=== PATIENT | female | born 1955 | race Caucasian/White ===

== ENCOUNTER 2018-05-10 19:31 | Emergency (ER) | payer BC, OTHER ==
--- NOTE | 2018-05-10 19:53 | RAD REPORT ---
EXAM DESCRIPTION: CT - Ct Stroke Brain Wo Cont - 05/10/2018 7:49 pm CLINICAL HISTORY: Aphasia;Confused CVA symptomology COMPARISON: No comparisons TECHNIQUE: All CT scans are performed using dose optimization technique as appropriate and may inclu de automated exposure control or mA/KV adjustment according to patient size. FINDINGS: No intracranial hemorrhage, hydrocephalus or extra-axial fluid collection.Mild generalized brain atrophy is present with mild periventricular and deep white matter chronic microvascular ische sulma changes.No areas of brain edema or evidence of midline shift. The paranasal sinuses and mastoids are clear. The calvarium is intact. Left vertebral artery is calci fied. IMPRESSION: No acute intracranial abnormality.
[2018-05-10 19:59] LABS: Absolute Lymphocytes (CBC) 2.6 K/uL (0.7-4.9); Absolute Monocytes 0.8 K/uL (0.1-1.3); Absolute Neutrophil 4.1 K/uL (1.8-8.0); Basophils % 1.3 % (0-1.3); Eosinophils % 3.8 % (0-4.4); MPV 8.7 fL (7.6-11.3); Monocytes % 10.1 % (3.3-12.3); RBC Red Blood Cell Count 4.12 M/uL (3.86-4.86)
[2018-05-10 20:05] LABS: Protime INR 0.9
[2018-05-10 20:14] LABS: Potassium 4.1 mmol/L (3.5-5.1)
--- NOTE | 2018-05-10 20:22 | RAD REPORT ---
EXAM DESCRIPTION: RAD - Chest Single View - 05/10/2018 8:16 pm CLINICAL HISTORY: stroke Chest pain. COMPARISON: No comparisons FINDINGS: Portable technique limits examination quality. The lungs are grossly clear. The heart is normal in size. No displaced fractures.Sternotomy wires. IMPRESSION: No acute intrathoracic process suspected.
[2018-05-10 21:04] LABS: Urine Blood NEGATIVE (NEG); Urine Glucose NEGATIVE (NEG); Urine Protein TRACE (NEG); Urine Specific Gravity 1.015 (1.005-1.030)
--- NOTE | 2018-05-10 21:43 | ER ---
Nurse's Notes [facility] Name: Jeni Navarro Age: 63 yrs Sex: Female : 1955 Arrival Date: 05/10/2018 Time: 19:34 Bed 3 Private MD: Diagnosis: Transient ischemic attack;Dysarthria following unspecified cerebrovascular disease Presentation: 05/10 19:28 Presenting complaint: EMS states: that pt is having on and off slurred speech and fc expressive aphagia. Tingling to right arm when this started but it has gone away. Pt denies any pain or discomfort. Hx of CVA. Transition of care: patient was not received from another setting of care. Onset of symptoms was May 10, 2018 at 18:30. Risk Assessment: Do you want to hurt yourself or someone else? Patient reports no desire to harm self or others. Initial Sepsis Screen: Does the patient meet any 2 criteria? No. Patient's initial sepsis screen is negative. Does the patient have a suspected source of infection? No. Patient's initial sepsis screen is negative. Care prior to arrival: IV initiated. 20 GA, in the left forearm, Glucose check: 111. 19:28 Method Of Arrival: EMS: [facility] 19:28 Acuity: KARINA 2 fc 19:28 An acute neurological deficit is present. The patients blood glucose was checked before aa1 arriving to the hospital and was found to be normal. Triage Assessment: 19:28 The onset of the patients symptoms was May 10, 2018 at 18:30. aa1 Stroke Activation: Symptom onset < 3 hours Physician: Stroke Attending; Name: ; Notified At: 19:28; Arrived At: Physician: Chief Stroke Resident; Name: ; Notified At: 19:28; Arrived At: Physician: Stroke Resident; Name: ; Notified At: 19:28; Arrived At: Physician: ED Attending; Name: Britt; Notified At: 19:28; Arrived At: 19:28 Physician: ED Resident; Name: ; Notified At: 19:28; Arrived At: Historical: - Allergies: 21:06 No Known Allergies; fc - Home Meds: 21:06 Metformin Oral [Active]; Metoprolol Tartrate Oral [Active]; fc - PMHx: 21:06 CVA; Diabetes - NIDDM; Hypertension; fc - PSHx: 21:06 CABG; Heart stents; fc - Immunization history:: Last tetanus immunization: up to date Flu vaccine is not up to date. - Social history:: Smoking status: Patient/guardian denies using tobacco, Patient/guardian denies using alcohol. - Ebola Screening: : Patient negative for fever greater than or equal to 101.5 degrees Fahrenheit, and additional compatible Ebola Virus Disease symptoms Patient denies exposure to infectious person Patient denies travel to an Ebola-affected area in the 21 days before illness onset. Screenin:28 Abuse screen: Denies threats or abuse. Nutritional screening: No deficits noted. Tuberculosis screening: No symptoms or risk factors identified. Fall Risk None identified. 19:41 The patient has not been NPO before screening. The patient is alert, able to follow commands. The patient does not exhibit slurred or garbled speech The patient is exhibiting difficulty speaking. The patient does not exhibit difficulty understanding words. The patient is able to swallow own secretions with no drooling or need for suction. Patient tolerated one teaspoon of water. No drooling, immediate coughing, gurgling, or clearing of the throat was noted. The patient tolerated 90mL of water. No drooling, immediate coughing, gurgling, or clearing of the throat was noted. The patient passed the bedside swallow screening. Oral medications may be given as ordered. Contact Physician for further diet orders. Provider notified of bedside swallow screening results: Zacarias De La Torre MD. Assessment: 19:38 General: Appears in no apparent distress. comfortable, Behavior is calm, cooperative, aa1 appropriate for age. Pain: Denies pain. Neuro: Level of Consciousness is awake, alert, obeys commands, Oriented to person, place, time, situation, Audit Spec are equal bilaterally Moves all extremities. Speech is normal, Facial symmetry appears normal, Pupils are PERRLA, Intact When pt asked to identify illustrations on stroke sheet she is unable to identify all of the objects shown and has a difficult time explaining the scene depicted . Denies blurred vision dizziness, difficulty swallowing, paresthesias numbness. Cardiovascular: Heart tones S1 S2 present Rhythm is regular. Respiratory: Airway is patent Respiratory effort is even, unlabored, Respiratory pattern is regular, symmetrical, Breath sounds are clear bilaterally. GI: No signs and/or symptoms were reported involving the gastrointestinal system. : No signs and/or symptoms were reported regarding the genitourinary system. EENT: No signs and/or symptoms were reported regarding the EENT system. Derm: Skin is intact, is healthy with good turgor, Skin is pink, warm \T\ dry. Musculoskeletal: Circulation, motion, and sensation intact. Capillary refill < 3 seconds, Range of motion: intact in all extremities. 19:41 Patient has been NPO before screening. The patient is alert, and able to follow aa1 commands. The patient does not exhibit slurred or garbled speech. The patient is not exhibiting difficulty speaking. The patient does not exhibit difficulty understanding words. The patient is able to swallow own secretions with no drooling or need for suction. Patient tolerated one teaspoon of water. No drooling, immediate coughing, gurgling, or clearing of the throat was noted. The patient tolerated 90mL of water. No drooling, immediate coughing, gurgling, or clearing of the throat was noted. The patient passed the bedside swallow screening. Oral medications may be given as ordered. Contact Physician for further diet orders. Provider notified of bedside swallow screening results: Zacarias De La Torre MD. 19:55 T-PA (Activase) Screening: Contraindications: Rapidly improving condition or minor aa1 deficit: Yes. 20:30 Reassessment: Patient appears in no apparent distress at this time. Patient and/or aa1 family updated on plan of care and expected duration. Pain level reassessed. Patient is alert, oriented x 3, equal unlabored respirations, skin warm/dry/pink. Awaiting provider disposition. 21:30 Reassessment: Patient appears in no apparent distress at this time. Patient and/or aa1 family updated on plan of care and expected duration. Pain level reassessed. Patient is alert, oriented x 3, equal unlabored respirations, skin warm/dry/pink. Pt visiting with family. Requesting water. Will be transferred to [facility] for neurology. 22:01 Reassessment: Patient appears in no apparent distress at this time. Patient and/or aa1 family updated on plan of care and expected duration. Pain level reassessed. Patient is alert, oriented x 3, equal unlabored respirations, skin warm/dry/pink. Report given to Radha Moreland RN at [facility]. 23:15 Reassessment: Patient appears in no apparent distress at this time. Patient and/or aa1 family updated on plan of care and expected duration. Pain level reassessed. Patient is alert, oriented x 3, equal unlabored respirations, skin warm/dry/pink. Pt still awaiting transfer to [facility]. [place] and EMS both unavailable for transport; [facility] contacted and report they can have a unit here within the hour. 05/11 00:24 Reassessment: Patient appears in no apparent distress at this time. Patient is alert, aa1 oriented x 3, equal unlabored respirations, skin warm/dry/pink. [facility] present for transport to [facility]. Vital Signs: 05/10 19:28 BP 162 / 77; Pulse 71; Resp 18; Temp 97.9(O); Pulse Ox 100% on R/A; Weight 79.83 kg fc (R); Height 5 ft. 0 in. (152.40 cm) (R); Pain 0/10; 20:30 BP 137 / 67; Pulse 61; Resp 22; Pulse Ox 100% on R/A; Pain 0/10; aa1 21:31 BP 153 / 68; Pulse 60; Resp 23; Pulse Ox 99% on R/A; ca1 22:26 BP 147 / 76; Pulse 62; Resp 24; Temp 98.0; Pulse Ox 99% on R/A; Pain 0/10; aa1 23:30 BP 128 / 46; Pulse 68; Resp 20; Pulse Ox 99% on R/A; Pain 0/10; aa1 05/11 00:23 BP 128 / 52; Pulse 61; Resp 20; Pulse Ox 100% on R/A; Pain 0/10; aa1 05/10 19:28 Body Mass Index 34.37 (79.83 kg, 152.40 cm) fc Antwan Coma Score: 05/10 19:28 Eye Response: spontaneous(4). Verbal Response: oriented(5). Motor Response: obeys aa1 commands(6). Total: 15. 23:30 Eye Response: spontaneous(4). Verbal Response: oriented(5). Motor Response: obeys aa1 commands(6). Total: 15. 05/11 00:23 Eye Response: spontaneous(4). Verbal Response: oriented(5). Motor Response: obeys aa1 commands(6). Total: 15. NIH Stroke Scale Scores: 05/10 19:28 NIHSS Score: 2 fc 19:38 NIHSS Score: 2 aa1 ED Course: 19:28 Arm band placed on Patient placed in an exam room, on a stretcher. fc 19:28 Patient has correct armband on for positive identification. Bed in low position. Call fc light in reach. Side rails up X2. gambling monitor on. Pulse ox on. NIBP on. 19:28 No provider procedures requiring assistance completed. Maintain EMS IV. Dressing fc intact. Good blood return noted. Site clean \T\ dry. Gauge \T\ site: 20 gauge to left forearm. 19:34 Patient arrived in ED. es 19:38 Warm blanket given. aa1 19:39 EKG done, by ED staff, reviewed by Zacarias De La Torre MD. aa1 19:42 Zacarias De La Torre MD is Attending Physician. tw4 19:47 Triage completed. fc 19:50 CT Stroke Brain w/o Contrast In Process Unspecified. EDMS 19:51 Diana Walter, RN is Primary Nurse. ak1 19:51 Initial lab(s) drawn, by laborer gold leaf, sent to lab. aa1 20:13 Stroke CXR 1 View In Process Unspecified. EDMS 21:58 Diet: Patient given snack. Patient given water. Tolerated well. aa1 05/11 00:30 Patient transferred, IV remains in place. aa1 Administered Medications: No medications were administered Point of Care Testing: Blood Glucose: 05/10 19:30 Blood Glucose: 135 mg/dL; fc Ranges: Outcome: 21:42 ER care complete, transfer ordered by . tw4 05/11 00:29 Transferred by ground EMS to [facility], Transfer form aa1 completed. X-rays sent w/ patient. Condition: stable Discharge instructions given to patient, family, significant other, Instructed on the need for admit, Demonstrated understanding of instructions. 00:33 Patient left the ED. aa1 NIH Stroke Scale - NIH Stroke Score Date: 05/10/2018 Time: 19:28 Total Score = 2 1a. Level of Consciousness (LOC) - 0(Alert) 1b. Level of Consciousness (LOC) (Year \T\ Age) - 0(Both) 1c. LOC Commands (Open \T\ Closes Eyes/Clearing Inspector) - 0(Both) 2. Best Gaze (Lateral Gaze Paresis) - 0(Normal) 3. Visual Field Loss - 0(No visual loss) 4. Facial Palsy - 0(Normal) 5a. Left Arm: Motor (10-second hold) - 0(No drift) 5b. Right Arm: Motor (10-second hold) - 0(No drift) 6a. Left Leg: Motor (5-second hold - always test supine) - 0(No drift) 6b. Right Leg: Motor (5-second hold - always test supine) - 0(No drift) 7. Limb Ataxia (finger/nose \T\ heel/lui - test with eyes open) - 0(Absent) 8. Sensory Loss (pinprick arms/legs/face) - 0(Normal) 9. Best Language: Aphasia (description/naming/reading) - 1(Mild to moderate aphasia) 10. Dysarthria (speech clarity - read or repeat words) - 1(Mild to Moderate) 11. Extinction and Inattention (visual/tactile/auditory/spatial/personal) - 0(No abnormality) Initials: NIH Stroke Scale - NIH Stroke Score Date: 05/10/2018 Time: 19:38 Total Score = 2 1a. Level of Consciousness (LOC) - 0(Alert) 1b. Level of Consciousness (LOC) (Year \T\ Age) - 0(Both) 1c. LOC Commands (Open \T\ Closes Eyes/Clearing Inspector) - 0(Both) 2. Best Gaze (Lateral Gaze Paresis) - 0(Normal) 3. Visual Field Loss - 0(No visual loss) 4. Facial Palsy - 0(Normal) 5a. Left Arm: Motor (10-second hold) - 0(No drift) 5b. Right Arm: Motor (10-second hold) - 0(No drift) 6a. Left Leg: Motor (5-second hold - always test supine) - 0(No drift) 6b. Right Leg: Motor (5-second hold - always test supine) - 0(No drift) 7. Limb Ataxia (finger/nose \T\ heel/lui - test with eyes open) - 0(Absent) 8. Sensory Loss (pinprick arms/legs/face) - 0(Normal) 9. Best Language: Aphasia (description/naming/reading) - 1(Mild to moderate aphasia) 10. Dysarthria (speech clarity - read or repeat words) - 1(Mild to Moderate) 11. Extinction and Inattention (visual/tactile/auditory/spatial/personal) - 0(No abnormality) Initials: aa1 Signatures: Dispatcher [employer] Yani Coe RN RN aa1 Lori aBe Felicia, RN RN fc Diana Walter RN RN ak1 Zacarias De La Torre MD MD tw4 Bere Leon RN RN ca1
--- NOTE | 2018-05-10 21:43 | EDPHYS ---
Physician Documentation [facility] Name: Jeni Navarro Age: 63 yrs Sex: Female : 1955 Arrival Date: 05/10/2018 Time: 19:34 Bed 3 Private MD: ED Physician Zacarias De La Torre HPI: 05/10 20:32 This 63 yrs old Female presents to ER via EMS with complaints of speech tw4 difficulty. 20:32 The patient's problem is reported as dysphasia, slurred speech, expressive aphasia. tw4 Onset: The symptoms/episode began/occurred just prior to arrival, today. Duration: This was a single incident. Context: the episode(s) was witnessed, by a bystander. The symptoms are alleviated by nothing. The symptoms are aggravated by nothing. Associated signs and symptoms: The patient has no apparent associated signs or symptoms. Severity of symptoms: At their worst the symptoms were mild in the emergency department the symptoms are unchanged. The patient has not experienced similar symptoms in the past. Historical: - Allergies: 21:06 No Known Allergies; fc - Home Meds: 21:06 Metformin Oral [Active]; Metoprolol Tartrate Oral [Active]; fc - PMHx: 21:06 CVA; Diabetes - NIDDM; Hypertension; fc - PSHx: 21:06 CABG; Heart stents; fc - Immunization history:: Last tetanus immunization: up to date Flu vaccine is not up to date. - Social history:: Smoking status: Patient/guardian denies using tobacco, Patient/guardian denies using alcohol. - Ebola Screening: : Patient negative for fever greater than or equal to 101.5 degrees Fahrenheit, and additional compatible Ebola Virus Disease symptoms Patient denies exposure to infectious person Patient denies travel to an Ebola-affected area in the 21 days before illness onset. ROS: 20:32 Constitutional: Negative for fever, chills, and weight loss, Eyes: Negative for injury, tw4 pain, redness, and discharge, Cardiovascular: Negative for chest pain, palpitations, and edema, Respiratory: Negative for shortness of breath, cough, wheezing, and pleuritic chest pain, Abdomen/GI: Negative for abdominal pain, nausea, vomiting, diarrhea, and constipation, Back: Negative for injury and pain, MS/Extremity: Negative for injury and deformity. 20:32 Neuro: Positive for speech changes, Negative for altered mental status, dizziness, gait disturbance, headache, hearing loss, syncope, near syncope, tingling, tinnitus, tremor, visual changes, weakness. Exam: 20:32 Constitutional: This is a well developed, well nourished patient who is awake, alert, tw4 and in no acute distress. Head/Face: Normocephalic, atraumatic. Chest/axilla: Normal chest wall appearance and motion. Nontender with no deformity. No lesions are appreciated. Cardiovascular: Regular rate and rhythm with a normal S1 and S2. No gallops, murmurs, or rubs. Normal PMI, no JVD. No pulse deficits. Respiratory: Lungs have equal breath sounds bilaterally, clear to auscultation and percussion. No rales, rhonchi or wheezes noted. No increased work of breathing, no retractions or nasal flaring. Abdomen/GI: Soft, non-tender, with normal bowel sounds. No distension or tympany. No guarding or rebound. No evidence of tenderness throughout. Back: No spinal tenderness. No costovertebral tenderness. Full range of motion. Skin: Warm, dry with normal turgor. Normal color with no rashes, no lesions, and no evidence of cellulitis. MS/ Extremity: Pulses equal, no cyanosis. Neurovascular intact. Full, normal range of motion. 20:32 Neuro: Orientation: is normal, Mentation: is normal. 21:43 Radiologist reports: non acute findings on CT head tw4 05/11 03:04 ECG was reviewed by the Attending Physician. tw4 Vital Signs: 05/10 19:28 BP 162 / 77; Pulse 71; Resp 18; Temp 97.9(O); Pulse Ox 100% on R/A; Weight 79.83 kg fc (R); Height 5 ft. 0 in. (152.40 cm) (R); Pain 0/10; 20:30 BP 137 / 67; Pulse 61; Resp 22; Pulse Ox 100% on R/A; Pain 0/10; aa1 21:31 BP 153 / 68; Pulse 60; Resp 23; Pulse Ox 99% on R/A; ca1 22:26 BP 147 / 76; Pulse 62; Resp 24; Temp 98.0; Pulse Ox 99% on R/A; Pain 0/10; aa1 23:30 BP 128 / 46; Pulse 68; Resp 20; Pulse Ox 99% on R/A; Pain 0/10; aa1 05/11 00:23 BP 128 / 52; Pulse 61; Resp 20; Pulse Ox 100% on R/A; Pain 0/10; aa1 05/10 19:28 Body Mass Index 34.37 (79.83 kg, 152.40 cm) NIH Stroke Scale Scores: 05/10 19:28 NIHSS Score: 2 19:38 NIHSS Score: 2 aa1 [place] Coma Score: 19:28 Eye Response: spontaneous(4). Verbal Response: oriented(5). Motor Response: obeys aa1 commands(6). Total: 15. 23:30 Eye Response: spontaneous(4). Verbal Response: oriented(5). Motor Response: obeys aa1 commands(6). Total: 15. 05/11 00:23 Eye Response: spontaneous(4). Verbal Response: oriented(5). Motor Response: obeys aa1 commands(6). Total: 15. MDM: 05/10 19:42 Patient medically screened. tw4 21:43 Differential diagnosis: CVA, TIA. Data reviewed: vital signs, nurses notes. Data tw4 interpreted: Pulse oximetry: Interpretation: normal. Test interpretation: by ED physician or midlevel provider: plain radiologic studies. Counseling: I had a detailed discussion with the patient and/or guardian regarding: the historical points, exam findings, and any diagnostic results supporting the discharge/admit diagnosis, lab results, radiology results. 05/10 19:39 Order name: Basic Metabolic Panel; Complete Time: 21:37 05/10 19:39 Order name: CBC with Diff 05/10 19:39 Order name: Protime (+inr) 05/10 19:39 Order name: Ptt, Activated 05/10 19:39 Order name: CT Stroke Brain w/o Contrast; Complete Time: 20:55 05/10 20:16 Order name: Urine Dipstick--Ancillary (enter results) ag4 05/10 19:39 Order name: Stroke CXR 1 View 05/10 19:39 Order name: EKG; Complete Time: 19:40 05/10 19:39 Order name: Accucheck; Complete Time: 19:52 05/10 19:39 Order name: Cardiac monitoring; Complete Time: 19:52 05/10 19:39 Order name: EKG - Nurse/Tech; Complete Time: 19:52 05/10 19:39 Order name: IV Saline Lock; Complete Time: :52 05/10 19:39 Order name: Labs collected and sent; Complete Time: 19:52 05/10 19:39 Order name: NPO; Complete Time: 19:52 05/10 19:39 Order name: O2 Per Protocol; Complete Time: :52 05/10 19:39 Order name: O2 Sat Monitoring; Complete Time: :52 05/10 19:39 Order name: Stroke Swallow Screen; Complete Time: :52 EC/03 03:04 Rate is 70 beats/min. Rhythm is regular. QRS [place] is Normal. MD interval is normal. QRS tw4 interval is normal. QT interval is normal. No Q waves. T waves are Normal. No ST changes noted. Clinical impression: Normal ECG. Interpreted by me. Reviewed by me. Administered Medications: No medications were administered Point of Care Testing: Blood Glucose: 05/10 19:30 Blood Glucose: 135 mg/dL; Ranges: Critical Glucose Levels:Adult <50 mg/dl or >400 mg/dl <40 mg/dl or >180 mg/dl Disposition: 05/10/18 21:42 Transfer ordered to [facility]. Diagnosis are Transient ischemic attack, Dysarthria following unspecified cerebrovascular disease. - Reason for transfer: Higher level of care. - Accepting physician is Dr Card. - Condition is Fair. - Problem is new. - Symptoms have improved. NIH Stroke Scale - NIH Stroke Score Date: 05/10/2018 Time: 19:28 Total Score = 2 1a. Level of Consciousness (LOC) - 0(Alert) 1b. Level of Consciousness (LOC) (Year \T\ Age) - 0(Both) 1c. LOC Commands (Open \T\ Closes Eyes/Lithographic Photographer Apprentice) - 0(Both) 2. Best Gaze (Lateral Gaze Paresis) - 0(Normal) 3. Visual Field Loss - 0(No visual loss) 4. Facial Palsy - 0(Normal) 5a. Left Arm: Motor (10-second hold) - 0(No drift) 5b. Right Arm: Motor (10-second hold) - 0(No drift) 6a. Left Leg: Motor (5-second hold - always test supine) - 0(No drift) 6b. Right Leg: Motor (5-second hold - always test supine) - 0(No drift) 7. Limb Ataxia (finger/nose \T\ heel/lui - test with eyes open) - 0(Absent) 8. Sensory Loss (pinprick arms/legs/face) - 0(Normal) 9. Best Language: Aphasia (description/naming/reading) - 1(Mild to moderate aphasia) 10. Dysarthria (speech clarity - read or repeat words) - 1(Mild to Moderate) 11. Extinction and Inattention (visual/tactile/auditory/spatial/personal) - 0(No abnormality) Initials: NIH Stroke Scale - NIH Stroke Score Date: 05/10/2018 Time: 19:38 Total Score = 2 1a. Level of Consciousness (LOC) - 0(Alert) 1b. Level of Consciousness (LOC) (Year \T\ Age) - 0(Both) 1c. LOC Commands (Open \T\ Closes Eyes/Lithographic Photographer Apprentice) - 0(Both) 2. Best Gaze (Lateral Gaze Paresis) - 0(Normal) 3. Visual Field Loss - 0(No visual loss) 4. Facial Palsy - 0(Normal) 5a. Left Arm: Motor (10-second hold) - 0(No drift) 5b. Right Arm: Motor (10-second hold) - 0(No drift) 6a. Left Leg: Motor (5-second hold - always test supine) - 0(No drift) 6b. Right Leg: Motor (5-second hold - always test supine) - 0(No drift) 7. Limb Ataxia (finger/nose \T\ heel/lui - test with eyes open) - 0(Absent) 8. Sensory Loss (pinprick arms/legs/face) - 0(Normal) 9. Best Language: Aphasia (description/naming/reading) - 1(Mild to moderate aphasia) 10. Dysarthria (speech clarity - read or repeat words) - 1(Mild to Moderate) 11. Extinction and Inattention (visual/tactile/auditory/spatial/personal) - 0(No abnormality) Initials: aa1 Signatures: Dispatcher [employer] EDYani Mao RN RN aa1 Chretien, Reba, RN Zacarias Cisneros MD MD tw4 Corrections: (The following items were deleted from the chart) 05/11 00:33 05/10 21:42 05/10/2018 21:42 Transfer ordered to [facility]. Diagnosis is aa1 Transient ischemic attack; Dysarthria following unspecified cerebrovascular disease. Reason for transfer: Higher level of care. Accepting physician is Dr Card. Condition is Fair. Problem is new. Symptoms have improved. tw4
--- NOTE | 2018-05-11 07:36 | EKG ---
Test Date: 2018-05-10 Test Time: 19:40:26 [employer]: [employer] MEASUREMENT RESULTS: Intervals: Rate: 70 NC: 194 QRSD: 82 QT: 408 QTc: 440 Mora: P: 43 NC: 194 QRS: 19 T: 60 INTERPRETIVE STATEMENTS: Normal sinus rhythm Normal ECG No previous ECG available for comparison Electronically Signed On 05-11-18 07:36:07 BIOMEDICAL SPECIALIST by Robbie Antunez
== END 2018-05-11 00:33 | disposition short-term general hospital (02) ==
LOC: ER 19:31
DX: G45.9 Transient cerebral ischemic attack, unspecified (principal); I69.922 Dysarthria following unspecified cerebrovascular disease; R29.702 NIHSS score 2; I10 Essential (primary) hypertension; E11.9 Type 2 diabetes mellitus without complications; Z86.73 Personal history of transient ischemic attack (TIA), and cerebral infarction without residual deficits; Z95.1 Presence of aortocoronary bypass graft; Z95.818 Presence of other cardiac implants and grafts
CPT/HCPCS: 36415; 70450; 71045; 80048; 81003; 85025; 85610; 85730; 93005; 99285